=== PATIENT | female | born 2000 | race African-American/Black ===

== ENCOUNTER 2020-06-12 14:13 | Emergency (ER) | payer OTHER ==
[~2020-06-12] VITALS: Ht 170.2 cm; Wt 70.0 kg
[2020-06-12] MEDS ORDERED: ACETAMINOPHEN WITH CODEINE 300/30MG TABLET PO ONE (14:45)
[2020-06-12] MEDS ORDERED: KETOROLAC 60MG/2ML VIAL IM ONE (17:45)
[2020-06-12 18:30] VITALS: BP 127/73
== END 2020-06-12 18:30 | disposition home or self-care (01) ==
LOC: ER 14:28
DX: M79.10 Myalgia, unspecified site (principal); J45.909 Unspecified asthma, uncomplicated; V43.52XA Car driver injured in collision with other type car in traffic accident, initial encounter; Y93.89 Activity, other specified; Y92.488 Other paved roadways as the place of occurrence of the external cause
CPT/HCPCS: 71250; 73610; 74176; 81025; 96372; 99284; J1885